=== PATIENT | female | born 1990 | race Two or more races ===

== ENCOUNTER 2019-02-20 17:14 | Emergency (ER) | payer BC, MEDICAID ==
[2019-02-20] MEDS ORDERED: Famotidine IV* 10 MG/ML 2 ML (20 mg) ONE ×4 (17:23→17:45)
[2019-02-20] MEDS ORDERED: Famotidine IV* 10 MG/ML 2 ML (20 mg) IV SLOW PU ONE (17:37)
[2019-02-20] MEDS ORDERED: methylPREDNISolone 125 MG* 2 ML VIAL IV ONE (17:37)
--- NOTE | 2019-02-20 17:39 | ED ---
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 Patient was at [facility] when she was stung by the bee on the back of her right leg. Patient was stung by a bee yesterday in the leg and in the arm two days ago. Those times, she felt her hands get tingly and she started to develop splotches around the stings. Those times, her throat felt itchy but she could breathe fine. This time however, the patient reports that she also felt like her throat was closing. [facility] staff injected the patient with her own EpiPen and called EMS. The patient felt that the EpiPen only mildly helped, as her throat continued to get tighter and her hands went numb. EMS gave the patient Benadryl. The patient rates the pain 4/10 in severity. Symptoms aggravated by nothing. Symptoms alleviated by nothing. 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 Severity Initially: Mild Severity Currently: Mild Pain Intensity: 4 Pain Scale Used: 0-10 Numeric Character: Pruritus - Throat Aggravating Factor(s): Nothing Alleviating Factor(s): OTC Meds - Benadryl, Epinephrine Associated Signs And Symptoms: Positive: Difficulty Breathing, Throat Tightening , Other: - Hand tingliness - Allergies/Home Medications Allergies/Adverse Reactions: Allergies Allergy/AdvReac Type Severity Reaction Status Date / Time bee venom protein (honey bee) Allergy Anaphylatic Verified 02/20/19 17:26 Shock Home Medications: Home Medications Epipen 1 syr IM ONCE PRN 02/20/19 [History Confirmed 02/20/19] PMH/Surg Hx/FS Hx/Imm Hx Endocrine/Hematology History: Denies: Hx Diabetes Cardiovascular History: Denies: Hx Hypertension Respiratory History: Reports: Hx Asthma Psychiatric History: Reports: Hx Anxiety, Hx Depression, Hx Post Traumatic Stress Disorder, Hx Bipolar Disorder - Surgical History Surgery Procedure, Year, and Place: T&A. ACL repair Infectious Disease History: No Infectious Disease History: Denies: Traveled Outside the [place] in Last 30 Days - Family History Known Family History: Positive: Diabetes, Other - Cancer, bipolar - Social History Alcohol Use: Occasionally Hx Substance Use: No Substance Use Type: Reports: Marijuana Hx Tobacco Use: Yes Smoking Status (MU): Heavy Every Day Tobacco Smoker - 3 cigarettes/day Review of Systems ENT: Other - Throat tightening/pruritus Musculoskeletal: Other - Tingly hands Skin: Other - Splotches around sting site All Other Systems Reviewed And Are Negative: Yes Physical Exam - Summary Physical Exam Summary: Appearance: The patient is well-nourished in no acute distress and in no acute pain. Skin: The skin is warm and dry, and skin color reflects adequate perfusion. HEENT: The head is normocephalic and atraumatic. The pupils are equal and reactive. The conjunctivae are clear and without drainage. Nares are patent and without drainage. Mouth reveals moist mucous membranes, and the throat is without erythema and exudate. The external ears are intact. The ear canals are patent and without drainage. The tympanic membranes are intact. Neck: The neck is supple with full range of motion and non-tender. There are no carotid bruits. There is no neck vein distension. Respiratory: Chest is non-tender. Lungs are clear to auscultation and breath sounds are symmetrical and equal. Cardiovascular: Heart is regular rate and rhythm. There is no murmur or rub auscultated. There is no peripheral edema and pulses are symmetrical and equal. Abdomen: The abdomen is soft and non-tender. There are normal bowel sounds heard in all four quadrants and there is no organomegaly palpated. Musculoskeletal: There is no back tenderness noted. Extremities are non-tender with full range of motion. There is good capillary refill. There is no peripheral edema or calf tenderness elicited. Neurological: Patient is alert and oriented to person, place and time. The patient has symmetrical motor strength in all four extremities. Cranial nerves are grossly intact. Deep tendon reflexes are symmetrical and equal in all four extremities. Psychiatric: The patient has an appropriate affect and does not exhibit any anxiety or depression. Triage Information Reviewed: Yes Vital Signs On Initial Exam: Initial Vitals Temp Pulse Resp BP Pulse Ox 98.6 F 92 24 141/78 98 02/20/19 17:20 02/20/19 17:20 02/20/19 17:20 02/20/19 17:20 02/20/19 17:20 Vital Signs Reviewed: Yes Diagnostics - Vital Signs Vital Signs Temp Pulse Resp BP Pulse Ox 02/20/19 17:20 98.6 F 92 24 141/78 98 - Laboratory Lab Statement: Any lab studies that have been ordered have been reviewed, and results considered in the medical decision making process. Re-Evaluation - Re-Evaluation First Eval Re-Evaluation Time: 18:56 Change: Improved Comment: Patient reports feeling better. Discussed results with patient. Patient will be discharged home with dx of allergic reaction. Patient understands and agrees with this plan. Allergic Reaction Course/Dx - Course Course Of Treatment: Ms. Car was stung by a bee today and began to have symptoms of itchy throat with her throat closing. She's been stung several times in last couple days but these symptoms were more severe. During the episode her hands became numb and stiff and she couldn't move them. Her lips became numb also. She was given her own EpiPen injection by people around her and Benadryl in the EMS. She is feeling somewhat improved here and was observed while being given additional Solu-Medrol and Pepcid. She did well and was discharged in good condition with a refill of her EpiPen. It's unclear how much of this was an allergic reaction and a much was hyperventilation. - Diagnoses Provider Diagnoses: Allergic reaction Discharge ED - Sign-Out/Discharge Documenting (check all that apply): Patient Departure - Discharge Patient Received Moderate/Deep Sedation with Procedure: No - Discharge Plan Condition: Stable Disposition: HOME Prescriptions: EPINEPHrine [Epipen 2-Nima] 0.3 mg IM ONCE #1 inj Patient Education Materials: Insect Bite or Sting (ED), Anaphylaxis (ED) Referrals: Care [facility] [Outside] - 3 Days Additional Instructions: FOLLOW-UP WITH YOUR PRIMARY CARE PROVIDER IN 2-3 DAYS FOR YOUR SYMPTOMS. PLEASE RETURN TO THE ER FOR WORSENING OR CHANGING SYMPTOMS. - Billing Disposition and Condition Condition: STABLE Disposition: Home - Attestation Statements Document Initiated by Daronibe: Yes Documenting Scribe: Jeovany Martins Provider For Whom Kunal is Documenting (Include Credential): Cecilio Blanc MD Scribe Attestation: Jeovany Lowery, scribed for Cecilio Blanc MD on 02/21/19 at 0754. Scribe Documentation Reviewed: Yes Provider Attestation: The documentation as recorded by the Jeovany valdez accurately reflects the service I personally performed and the decisions made by me, Cecilio Blanc MD Status of Kunal Document: Viewed
[2019-02-20] MEDS ORDERED: methylPREDNISolone 125 MG* 2 ML VIAL ONE ×2 (17:45)
--- OUTSIDE RECORDS SUMMARY | 2019-02-20 18:20 | XMS REPORT | Continuity of Care Document ---
:1990 Author Organization [facility] Care Team Providers Name Role Phone NICHELLE LARA Primary Care Physician Allergies and Intolerances No Known Allergies Medications RxNorm Medication Dose Route Instructions Start Date End Date Status 636212 Ibuprofen 600 MG 600 mg oral orally 3 times per Active Oral Tablet day as needed. 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 PROCEDURE: Multidetector acquisition scanning was performed with thin cut contiguous axial tomographic sections through the left lower extremity without administration of intravenous contrast. Coronal and sagittal MPR images were obtained. Automated exposure control, adjustment of the mA and/or kV according to patient size, and/or iterative reconstruction techniques wereutilized for radiation dose optimization. FINDINGS/IMPRESSION: The patient is status post ACL reconstruction with plate and screw fixation along the medial tibial plateau. The tibial tract appears well aligned. The muscles appear normal in density and size. Large joint effusion. Small Miles'scyst. END OF IMPRESSION I have personally reviewed the images and the Resident's/Fellow's interpretation and agree with or edited the findings. [facility] submits Radiology results to [facility] and [facility] then provides those same results to [facility]. All results are available to [facility] and [facility] provider portal users. [facility] DICOM images are available to the [facility] provider portal users only. [facility] DICOM images are not available to the [facility] provider portal users. There is no current [facility] functionality allowing images to be available through the [facility] to IOconnectivity. Interpreted By: Parrish Lainez MD Electronically signed By: Lamont Stewart M.D. Read By: LAMONT STEWART Date: 12/21/2018 16:46Order: MRI LT LOWER EXT JOINT W/O CONTRASTExam Completion Date:12/21/2018 15:1072018 3:33 PM MRI LEFT LOWER JOINT WITHOUT CONTRAST CLINICAL INFORMATION: -- Sprain ofanterior cruciate ligament of knee COMPARISON: CT dated 12/21. PROCEDURE: Multiplanar multisequence MRI was performed without intravenous contrast. FINDINGS: The patient is status postanterior cruciate ligament reconstruction. The graft appears intact. No arthrofibrosis. The posterior cruciate ligament is intact. The medial and lateral collateral ligaments are intact. There ismaceration of the medial meniscus. The lateral meniscus demonstrates degenerative tears of the posterior horn. The articular cartilage of the medial compartment is preserved. There is a focal defect ofthe articular cartilage with marrow edema along the lateral femoral condyle. The patellofemoral articular cartilage is preserved. There is a large joint effusion. Large Miles's cyst. The extensormechanism is intact. IMPRESSION : 1. Status post anterior cruciate ligament reconstruction without evidence of recurrent rupture or sprain. 2. Maceration of the medial meniscus and degenerativetears of the posterior horn of the lateral meniscus. 3. Focal defect of the articular cartilage with marrow edema along the lateral femoral condyle. END OF IMPRESSION I have personally reviewed the images and the Resident's/Fellow's interpretation and agree with or edited the findings. [facility] submits Radiology results to [facility] and [facility] then provides those same results to [facility]. All results are available to [facility] and [facility] provider portal users. [facility] DICOM images are available to the [facility] provider portal users only. [facility] DICOM images are not available to the [facility] provider portal users. There is no current [facility] cross-IO functionality allowing images to be available through the [facility] to [facility] connectivity. Interpreted By: Parrish Lainez MD Electronically signed By: Lamont Stewart M.D. 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 Supporting Document Name Address Phone No Directive Type 05/19/2016 9:10:00 Not Specified Not Specified Not Specified None No specified PM *RHIO - CONSENT IS YES Directive Type Effective Date Cable Puller Notes Supporting Document Name Address Phone No Directive Type 10/16/2011 3:09:30 Not Specified Not Specified Not Specified None No specified PM Family History Relationship: Father Health Problem Age At Onset Notes Prediabetes (Impaired glucose tolerance) Relationship: Mother Health Problem Age At Onset Notes Ankylosing spondylitis Functional Status No data in the system Immunizations Vaccine Code Code System Vaccine Name Date Status UNKNOWN LAST TETANUS Completed Medical Equipment No data in the system Mental Status No data in the system Assessment and Plan Assessments No data in the systemPlan Of Treatment No data in the systemPending Tests No data in the system Hospital Discharge Instructions No data in the system Reason for Visit Reason for Visit CT, MRI
--- OUTSIDE RECORDS SUMMARY | 2019-02-20 18:20 | XMS REPORT | Continuity of Care Document ---
:1990 External Reference #:[id number] Author Name Nasim Chatman M.D. Address [address] [place] [address], [address] [place] [address] Problems Active Problems Provider Date Orthostatic hypotension Jaden Barr MD Onset: 05/17/2008 Allergic asthma without status asthmaticus Jaden Barr MD Onset: 2004 Social History Type Date Description Comments Sex Unknown Cigarette Use Denies Cigarette Use ETOH Use Occasionally consumes alcohol Tobacco Use Start: Unknown Patient is a current smoker, smokes every day Recreational Drug Use Denies Drug Use Allergies, Adverse Reactions, Alerts Description No Known Drug Allergies Medications Active Medications SIG Qnty Indications Ordering Provider Date Cryselle-28 1 po qd 1Pack Unknown 0.3-30mg-mcg Tablets Albuterol Sulfate HFA inhale 2 puffs Unknown by mouth every 4 108(90Base) mcg/Act hours as needed Aerosol Pepcid 1 by mouth daily Unknown 20mg Tablets as needed Immunizations CPT Code Status Date Vaccine Lot # [id number] Given 12/07/2007 HPV Vaccine Type 6,11,16,18 3 Dose Schedule Intramuscular Use 45664 Given 08/03/2007 HPV Vaccine Type 6,11,16,18 3 Dose Schedule Intramuscular Use 58950 Given 01/29/2007 Menactra-Meningococcal Conj Vaccine 59623 Given 01/29/2007 HPV Vaccine Type 6,11,16,18 3 Dose Schedule Intramuscular Use 37267 Given 01/09/2006 Tetanus, Diphtheria Toxoids/Acellular Pertussis Vaccine 7 Or > 07049 Given 05/02/2004 Influenza Virus Split 3 Yrs And Above For Intramuscular Use 27352 Given 09/10/1996 Poliovirus Vaccine Oral 61436 Given 09/10/1996 MMR Vaccine, Live, For Subcutaneous Use 00444 Given 09/10/1996 DTaP Vaccine Younger Than 7 (daptacel/Infarix) 76460 Given 10/31/1993 Hepatitis B Vaccine Pediatric/Adolescent 40980 Given 10/31/1993 Poliovirus Vaccine Oral 07480 Given 10/31/1993 DTaP Vaccine Younger Than 7 (daptacel/Infarix) 63951 Given 07/17/1993 Hib Hboc Conjugate 4 Dose Schedule 81082 Given 07/17/1993 MMR Vaccine, Live, For Subcutaneous Use 47226 Given 1992 Hepatitis B Vaccine Pediatric/Adolescent 97297 Given 1992 Hepatitis B Vaccine Pediatric/Adolescent 30674 Given 1992 DTP Vaccine 92912 Given 1992 Hib Hboc Conjugate 4 Dose Schedule 24313 Given 1992 Poliovirus Vaccine Oral 26208 Given 1992 DTP Vaccine 43974 Given 1992 Hib Hboc Conjugate 4 Dose Schedule 39272 Given 1992 Poliovirus Vaccine Oral 42855 Given 1992 DTP Vaccine 23722 Given 1992 Hib Hboc Conjugate 4 Dose Schedule Vital Signs Date Vital Result Comment 12/28/2018 12:20pm Weight 155.00 lb Weight 70.308 kg BMI (Body Mass Index) 25.0 kg/m2 Respiratory Rate 15 /min Height 66 inches 5'6" Height in cm's 167.6 cm 12/08/2018 9:50am Weight 155.00 lb Weight 70.308 kg BMI (Body Mass Index) 25.0 kg/m2 Respiratory Rate 16 /min Height 66 inches 5'6" Height in cm's 167.6 cm Results Description No Information Available Procedures Description No Information Available Medical Devices Description No Information Available Encounters Type Date Location Provider Dx Diagnosis Office Visit 12/28/2018 Clare Phi Chatman, S83.512D Sprain of 12:15p [facility] anterior cruciate ligament of left knee, subs Office Visit 12/08/2018 Ingrid Chatman, S83.512A Sprain of 9:00a [facility] anterior cruciate ligament of left knee, init Assessments Date Code Description Provider 12/28/2018 S83.512D Sprain of anterior cruciate ligament of Nasim Chatman M.D. left knee, subsequent encounter 12/08/2018 S83.512A Sprain of anterior cruciate ligament of Nasim Chatman M.D. left knee, init Plan of Treatment 12/28/2018 - Nasim Chatman M.D.S83.512D Sprain of anterior cruciate ligament of left knee, subsequent encounterNew Therapy:Physical Therapy Functional Status Description No Information Available Mental Status Description No Information Available Referrals Description No Information Available
[2019-02-20 19:50] VITALS: BP 125/74
== END 2019-02-20 19:25 | disposition home or self-care (01) ==
LOC: ED 17:14
DX: T63.441A Toxic effect of venom of bees, accidental (unintentional), initial encounter (principal); Y92.9 Unspecified place or not applicable; J45.909 Unspecified asthma, uncomplicated; F41.9 Anxiety disorder, unspecified; F31.9 Bipolar disorder, unspecified; F43.10 Post-traumatic stress disorder, unspecified; F17.210 Nicotine dependence, cigarettes, uncomplicated
CPT/HCPCS: 96374; 96375; 99284; J2930